=== PATIENT | male | born 1965 | race Caucasian/White ===

== ENCOUNTER 2019-03-23 06:57 | Day surgery (SDC) | payer MEDICAID ==
[2019-03-18 12:13] LABS: BASOPHILS # (AUTO) 0.1 X10'3 (0-0.2); BASOPHILS % (AUTO) 0.6 % (0-1); EOSINOPHILS # (AUTO) 0.2 X10'3 (0-0.9); EOSINOPHILS % (AUTO) 1.4 % (0-6); LYMPHOCYTES % (AUTO) 14.5 % (21-51); MEAN CORPUSCULAR HEMOGLOBIN 33.2 PG (27.0-31.0); MEAN CORPUSCULAR HGB CONC 34.4 g/dL (33.0-36.5); MEAN CORPUSCULAR VOLUME 96.5 FL (78-98); MEAN PLATELET VOLUME 8.4 FL (7.4-10.4); MONOCYTES # (AUTO) 1.4 X10'3 (0-0.9); MONOCYTES % (AUTO) 9.8 % (2-12); NEUTROPHILS # (AUTO) 10.2 X10'3 (1.8-7.7); NEUTROPHILS % (AUTO) 73.7 % (42-75); PRE OP HEMATOCRIT 47.4 % (42.0-52.0); PRE OP HEMOGLOBIN 16.3 g/dL (14.0-17.9); PRE OP PLATELET COUNT 229 X10'3 (140-440); RED BLOOD COUNT 4.91 X10'6 (4.70-6.10); RED CELL DISTRIBUTION WIDTH 13.1 % (11.5-14.5)
[2019-03-18 12:17] LABS: CLARITY,URINE CLEAR (Clear); COLOR,URINE YELLOW (Yellow); GLUCOSE, URINE NEGATIVE (Neg); KETONES,URINE NEGATIVE (Neg); LEUKOCYTE ESTERASE ,URINE NEGATIVE (Neg); NITRITES, URINE NEGATIVE (Neg); OCCULT BLOOD,URINE NEGATIVE (Neg); PROTEIN,URINE NEGATIVE (Neg); UROBILINOGEN,URINE 0.2 E.U/dL (0.2-1.0)
[2019-03-18 12:23] LABS: UA COLLECTION TYPE NON-SPECIFIED
[2019-03-18 12:26] LABS: ALBUMIN 4.3 G/DL (3.4-5.0); ALBUMIN/GLOBULIN RATIO 1.1 (1.1-1.5); ALKALINE PHOSPHATASE 59 IU/L (46-116); BLOOD UREA NITROGEN 11 MG/DL (7-18); BUN/CREATININE RATIO 11.6 (5.4-32.0); CALCIUM 9.1 MG/DL (8.5-10.1); CHLORIDE 102 MMOL/L (99-107); CREATININE 0.95 MG/DL (0.60-1.10); PRE OP ANION GAP 9 (8-16); PRE OP AST 58 U/L (10-37); PRE OP BILIRUB, TOTAL 0.3 MG/DL (0.0-1.0); PRE OP GLUCOSE 104 MG/DL (70-104); PRE OP POTASSIUM 4.1 MMOL/L (3.4-5.1); PRE OP SODIUM 140 MMOL/L (135-145); TOTAL CARBON DIOXIDE 29.4 MMOL/L (24-32); TOTAL PROTEIN 8.2 G/DL (6.4-8.2); eGFR 83 ML/MIN
[2019-03-18 12:28] LABS: PRE OP ALT 109 U/L (30-65)
[2019-03-23] VITALS (10 sets, daily range): BP systolic 147–173; BP diastolic 83–106
[~2019-03-23] VITALS: Ht 180.3 cm; Wt 104.0 kg
[~2019-03-23 06:57] MED LIST: HYDR12.5 PO; LISI40TA4 PO; cefazolin/dext.iso 2gm/50ml 50 ML IV ONE; famotidine 20mg tablet PO ONE; ringers solution, lacted 1,000 ML IV SCH
[2019-03-23] MEDS ORDERED: BUPIVACAINE liposomal/PF 13.3 MG/ML vial IM ONE (08:50)
[2019-03-23] MEDS ORDERED: BUPIVAcaine/PF 2.5 mg/ml (0.25%) 30ml vial ONE (08:50)
[2019-03-23] MEDS ORDERED: ceFAZolin 1000mg inj ONE (08:50)
[2019-03-23] MEDS ORDERED: dexamethasone sod phosphate 10mg/ml inj ONE (09:32)
[2019-03-23] MEDS ORDERED: sevoflurane 250ml liquid IH ONE (09:32)
[2019-03-23] MEDS ORDERED: midazolam 2 mg/2 ml injection ONE (09:34)
[2019-03-23] MEDS ORDERED: fentaNYL /PF 50mcg/ml 5ml ampule ONE (09:34)
[2019-03-23] MEDS ORDERED: propofol inj 20 ML IV ONE (09:37)
[2019-03-23] MEDS ORDERED: morphine 4 MG/ML inj SYRINge IV PRN ×2 (10:05)
[2019-03-23] MEDS ORDERED: ondansetron/PF 4mg/2ml inj IV PRN (10:05)
[2019-03-23] MEDS ORDERED: meperidine/PF 25mg/ml syringe IV PRN ×3 (10:05)
[2019-03-23] MEDS ORDERED: proCHLORperazine 10 MG/2 ml inj IV PRN (10:05)
[2019-03-23] MEDS ORDERED: ringers solution, lacted 1,000 ML IV SCH (10:05)
--- NOTE | 2019-03-23 10:20 | NUR ---
Received from OR via BED , accompanied by Anesthesiologist DR GOSS and report given by Anesthesiolgist. PATIENT WAKING UP, DENIES PAIN, V/S WNL, NEUROVASCULAR CHECKS INTACT, 20G PIV TO RUE, DRESSING TO ABD CDI. PULSES AND CLINICAL SYSTEMS EDUCATOR WNL
--- NOTE | 2019-03-23 11:58 | NUR ---
ALL DC CRITERIA HAS BEEN MET. IV OUT WITHOUT ISSUE OR COMPLICATION. DENIES PAIN. SPOUSE PRESENT FOR DC PAPERWORK. ALL QUESTIONS ANSWERED, SPOUSE ASSISTED PATIENT IN GETTING DRESSED, OUT VIA WHEELCHAIR TO POV WHERE DROVE PT HOME. ALL DC CRITERIA HAS BEEN MET AND DRESSING IS CDI. PATIENT A&OX4, DENIES PAIN, V/S WNL, CSM INTACT, 20G PIV TO LUE D/C, SCD OFF, BANDAIDS TO ABDOMEN CDI. I HAVE REVIEWED D/C INSTRUCTIONS WITH PATIENT AND THEY HAVE VERBALIZED UNDERSTANDING. PATIENT D/C HOME WITH ALL BELONGINGS AND FAMILY GAVE TRANSPORT HOME.
== END 2019-03-23 12:00 | disposition home or self-care (01) ==
LOC: PAS 06:57
PROVIDERS: ATTEND Surgery
DX: K42.9 Umbilical hernia without obstruction or gangrene (principal); F17.210 Nicotine dependence, cigarettes, uncomplicated; I11.0 Hypertensive heart disease with heart failure; I50.9 Heart failure, unspecified; E66.01 Morbid (severe) obesity due to excess calories; Z68.32 Body mass index [BMI] 32.0-32.9, adult; Z86.73 Personal history of transient ischemic attack (TIA), and cerebral infarction without residual deficits; Z72.89 Other problems related to lifestyle; Z88.5 Allergy status to narcotic agent; Z88.8 Allergy status to other drugs, medicaments and biological substances; Z79.899 Other long term (current) drug therapy
CPT/HCPCS: 36415; 49585; 80053; 81003; 82948; 85025; C1781; C9290; J0690; J2250; J2704; J3010; J3490; A4215; A4618; A6449; A7000; J1100; J7120